=== PATIENT | male | born 1995 | race Caucasian/White ===

== ENCOUNTER 2022-02-13 23:05 | Emergency (ER) | payer MEDICAID ==
[~2022-02-13] VITALS: Ht 165.1 cm; Wt 74.8 kg
[2022-02-13 23:06] VITALS: BP 135/76
--- NOTE | 2022-02-13 23:09 | NUR ---
OBINNA CHP TAKEN TO CHAIR C
--- NOTE | 2022-02-14 00:41 | NUR ---
PATIENT BIB [facility]. PATIENT EXAMINED BY . PATIENT MEDICALLY CLEARED AND RELEASED IN CUSTODY IN STABLE CONDITION. ORIGINAL PRE-BOOK FORM GIVEN TO OFFICER ASHANTI, #[id number].
== END 2022-02-14 00:41 ==
LOC: EDSEX 23:05 → MED 23:05
DX: F10.129 Alcohol abuse with intoxication, unspecified (principal); Y90.9 Presence of alcohol in blood, level not specified; Z72.89 Other problems related to lifestyle; V49.60XA Unspecified car occupant injured in collision with unspecified motor vehicles in traffic accident, initial encounter; Y93.89 Activity, other specified; Y92.89 Other specified places as the place of occurrence of the external cause; Y99.8 Other external cause status
CPT/HCPCS: 99283